=== PATIENT | female | born 1960 | race Caucasian/White ===

== ENCOUNTER 2020-10-25 09:33 | Observation (INO) | payer OTHER ==
[~2020-10-25] VITALS: Ht 172.7 cm; Wt 118.4 kg
[~2020-10-25 09:33] MED LIST: ANORO ELLIPTA1 EACH INH; ATORVASTATIN CA80 MG PO; BUSPIRONE HCL15 MG PO; DULOXETINE HCL60 MG PO; FUROSEMIDE 40 M40 M1 PO; LOSARTAN POTASS50 MG PO; METFORMIN HCL500 M1 PO; OMEPRAZOLE 20 M20 M1 PO; PRAMIPEXOLE D0.25 MG PO; PREGABALIN200 MG PO; PROAIR HFA8.5 GM INH; QUETIAPINE FUM100 MG PO; QUETIAPINE FUM400 MG PO; SINGULAIR 10 MG10 M1 PO; STIOLTO RESPIMAT4 GM INH; ZOLPIDEM TARTRA10 MG PO
[2020-10-25 10:21] LABS: HEMATOCRIT 40.5 % (37.0-47.0); HEMOGLOBIN 13.7 gm/dL (12.0-15.0)
[2020-10-25 10:33] LABS: CALCIUM 8.7 mg/dL (8.5-10.1); CREATININE 0.8 mg/dL (0.6-1.0); POTASSIUM 3.8 mmol/L (3.5-5.1)
[2020-10-25 10:35] VITALS: BP 129/69
--- NOTE | 2020-10-25 14:14 | EKG ---
[address] [address] ELECTROCARDIOGRAM REPORT Name: MANPREET CELAYA Room #: 150-8 [facility]#: [id number] Admission: 10/25/20 Attend Phys: Montez Cox MD, Discharge: Date of : 64 Report #: [id number] [facility] Test Date: 2020-10-25 Test Time: 10:34:35 Pat Name: MANPREET CELAYA Department: Room: Gender: F Customer Care Representative: YOGI : 1960 Requested By: Montez Cox Order Number: [id number] MD: Miguel Paul Measurements Intervals [place] Rate: 59 P: 76 TX: 197 QRS: 45 QRSD: 104 T: 46 QT: 455 QTc: 451 Interpretive Statements Sinus rhythm No previous ECG available for comparison Electronically Signed On 10-25-2020 14:14:34 CDT by Miguel Paul [email or web address] <ELECTRONICALLY SIGNED> By: Miguel Paul MD, [facility] 10/25/20 1414 1034 1034 Miguel Paul MD, FACJude /EPI
[2020-10-25 15:32] VITALS: BP 165/106
--- NOTE | 2020-10-25 16:06 | NUR ---
ASSUMED PT CARE THIS AM. PT A&OX4, ABLE TO MAKE NEEDS KNOWN. IV PATENT, FLUIDS INFUSING. PATIENT REPORTS NAUSEA, MEDICATION GIVEN PER EMAR. PATIENT NPO FOLLOWING SURGERY. PATIENT REPORTING NO NUMBNESS OR TINGLING. 5 LAP SITES TO ABDOMEN, ALL ARE DRY AND INTACT. BLOOD SUGAR BEING MONITORED. FALL PRECAUTIONS ARE IN PLACE, CALL LIGHT WITHIN REACH. PATIENT IS ON 2 LITERS OF OXYGEN VIA NC.
[2020-10-25 16:25] VITALS: BP 166/99
[2020-10-25 20:32] VITALS: BP 147/82
[2020-10-26 03:29] VITALS: BP 129/71
--- NOTE | 2020-10-26 04:37 | NUR ---
PT IS A/O X4 AND IS UP WITH SBA WITH WALKER AND GB. 2 LITERS O2 NC. VSS AFEBRILE. VOIDS PER TOILET. NO BM THIS SHIFT. LAP SITES C/D/I. PT WALKED AROUND THE UNIT ONCE AND HAS BEEN TO THE BR A COUPLE TIMES. SCDS, AND FALL PRECAUTIONS IN PLACE, CALL LIGHT IS WITHIN REACH. WILL CONTINUE TO MONITOR.
[2020-10-26 05:49] LABS: HEMATOCRIT 39.5 % (37.0-47.0); HEMOGLOBIN 13.3 gm/dL (12.0-15.0); MCH 31.2 pg (26.0-34.0); MCHC 33.6 g/dL (28.0-37.0); MCV 92.9 fL (80.0-100.0); RBC 4.25 mil/uL (4.20-5.00); RDW 13.7 % (10.5-14.5); WBC 12.2 thou/uL (4.0-11.0)
[2020-10-26 06:16] LABS: CALCIUM 8.2 mg/dL (8.5-10.1); CREATININE 0.9 mg/dL (0.6-1.0)
[2020-10-26 06:34] LABS: POTASSIUM 5.1 mmol/L (3.5-5.1)
[2020-10-26 07:00] VITALS: BP 104/62
--- NOTE | 2020-10-26 11:58 | O ---
[address] [address] OPERATIVE REPORT Name: MANPREET CELAYA Room #: 438-P [facility] M.R.#: [id number] Admission: 10/25/20 Attend Phys: Montez Cox MD, Discharge: Date of : 64 Report #: [id number] THIS REPORT FOR: cc: Kaelyn Cruz MD, Allison Louise MD Soliman,Montez Talamantes MD FACS ~ DATE OF SERVICE: 10/25/2020 PREOPERATIVE DIAGNOSES: 1. Morbid obesity. 2. Hypertension. 3. Diabetes mellitus. 4. Hypercholesterolemia. 5. Chronic back pain. 6. Chronic fatigue. 7. History of laparoscopic sleeve gastrectomy with weight regain and stretched sleeve. 8. Hiatal hernia. POSTOPERATIVE DIAGNOSES: 1. Morbid obesity. 2. Hypertension. 3. Diabetes mellitus. 4. Hypercholesterolemia. 5. Chronic back pain. 6. Chronic fatigue. 7. History of laparoscopic sleeve gastrectomy with weight regain and stretched sleeve. 8. Moderate sized type 3 paraesophageal hernia. PROCEDURES PERFORMED: 1. Laparoscopic repair of a recurrent type 3 paraesophageal hernia without mesh. 2. Laparoscopic redo sleeve gastrectomy. 3. A thorough esophagogastroduodenoscopy (EGD). SURGEON: Montez Cox MD ADOPTION AGENT: SHARON Tabares. ANESTHESIA: General endotracheal anesthesia. ESTIMATED BLOOD LOSS: Minimal (less than 10 mL). COMPLICATIONS: None appreciated. [address] [place] [address] OPERATIVE REPORT Name: MANPREET CELAYA Room #: 438-P [facility]..#: [id number] Admission: 10/25/20 Attend Phys: Montez Cox MD, Discharge: Date of : 64 Report #: [id number] SPECIMENS: Gastric sleeve resection specimen to pathology. INDICATIONS: The patient is a 60-year-old female who has previously undergone a laparoscopic sleeve gastrectomy for weight loss as well as suture repair of a hiatal hernia. The patient did well initially, but has had significant weight regain and has undergone a thorough workup showing a markedly dilated sleeved stomach as well as recurrent hiatal hernia. After thorough consultation with the patient, she has elected to proceed with the above-mentioned procedures today after undergoing aggressive diet and exercise attempts under my direction for several months without significant results. The patient has also received clearance from her primary care physician, a psychologist and recreation attendant supervisor to have all cleared her for redo bariatric surgery, indicating that it is medically necessary for long-term weight loss and resolution of her comorbid conditions. DESCRIPTION OF PROCEDURE: After explaining the risks, benefits and alternatives of the procedure with the patient in detail in the preoperative holding area and obtaining consent, the patient was brought to the operating room and placed supine on the operating room table. After conducting a thorough timeout procedure, verifying correct patient and procedure, the patient was given general endotracheal anesthesia. Once adequate anesthesia was obtained, her SCDs were hooked up to pneumatic compression device and she was given a preoperative dose of antibiotics in line with the SCIP protocol. The patient's abdomen was now prepped and draped in the standard surgical sterile fashion after positioning her in the low lithotomy position with her legs in the Yellofin stirrups. Began the procedure by performing a thorough EGD. The Barcheyachtinon upper endoscope was used to intubate the oropharynx, was traversed down to the second portion of duodenum with ease. Slow careful withdrawal of the scope showed no evidence of duodenitis, gastritis, esophagitis, mass lesions or ulcerations. A retroflexion view of the scope within the markedly dilated gastric sleeve showed evidence of the recurrent hiatal hernia. The scope was straightened out with a step at the level of pylorus where it was fixed into position. The stomach was fully desufflated. After sterilely scrubbing and entering the operative field, I now proceeded to anesthetize the skin in the right upper quadrant, 5 cm cephalad to the umbilicus and 5 cm to the patient's right. This was done using 10 mL of 0.5% Marcaine with epinephrine and then I created a 1.5 cm transverse skin incision at this location. A 15 mm Visiport was placed over 0-degree 5 mm laparoscope and was introduced through this incision site. Once intra-abdominal placement was verified visually, the obturator for the trocar and laparoscope were both removed and the abdomen was insufflated to 15 mmHg using carbon dioxide gas. The laparoscope was changed to a 5 mm 30-degree laparoscope, which was reintroduced through this trocar. The entire abdomen was evaluated to ensure no injury upon entry. There was a paucity of intra-abdominal adhesions and as such, I was able to place additional [address] [address] OPERATIVE REPORT Name: MANPREET CELAYA Room #: 438-P [facility] An YoungR.#: [id number] Admission: 10/25/20 Attend Phys: Montez Cox MD, Discharge: Date of : 64 Report #: [id number] trocars in the left mid abdomen. A 5 mm port was placed 2 cm cephalad in the umbilicus and 1 cm to the patient's left, and 12 mm port was placed 5 cm lateral to that, and a final 5 mm port was placed in extreme left lateral flank. All three additional ports were placed under direct vision after anesthetizing the skin at each location with 5 mL of 0.5% Marcaine with epinephrine. I created appropriately sized skin nicks using #15 bladed scalpel. Laparoscope was removed, changed the 5 mm port cephalad to the umbilicus and the patient was placed in steep reverse Trendelenburg position. I now anesthetized the skin in subxiphoid location with 5 mL of 0.5% Marcaine with epinephrine. A small skin incision using a #15 bladed scalpel. The Eric liver retractor was now positioned through this defect where it was positioned up under the left lobe of the liver and held up against the posterior aspect of the anterior abdominal wall. We now had complete access to the stomach and hiatal regions and saw evidence of a type 3 paraesophageal hernia with approximately 1/3-1/2 of the sleeved stomach contained within the distal mediastinum. Careful traction was now placed on the gastric tissues and inferior direction due to pull this back into the intra-abdominal domain. I now proceeded to open the pars flaccida using Harmonic scalpel to identify the base of the right nga. I dissected anteriorly up the right nga using Harmonic scalpel for hemostasis. I now proceeded to take down all the adhesions from the greater curvature of the stomach, which it appears that the omentum was sutured back to the sleeved stomach at the time of her sleeve gastrectomy. This was taken down with Harmonic scalpel to free the entirety of the greater curvature of the stomach all the way up to the left nga where I dissected anteriorly up the left nga in similar fashion. I now elevated the stomach and made a retroesophageal window from the patient's right to left side, through which a Adamaris drain was pulled. This allowed me to provide inferior and anterior traction on the gastroesophageal tissues without actually handling the tissues themselves. I now carried down to extensive mediastinal dissection, taking down all adhesions in the mediastinum as far cephalad as possible, staying well away from all gastroesophageal tissues throughout. This now allowed me 3 cm of intra-abdominal esophagus that was not under traction to attempt to recoil back up into the mediastinum. I now performed a formal hiatal hernia repair posteriorly using several sutures of 0 Surgidac on the EndoStitch device to perform the cruroplasty and recreate the slit valve aspect of the lower esophageal sphincter complex without undue tightness on the gastroesophageal tissues themselves. I did place two sutures anteriorly as well, so that I did not distort the angle of entry into the abdomen too significantly. Once this was done, the Standard drain was removed in full and we turned our attention to the sleeve gastrectomy portion of the procedure. I measured 6 cm proximal to pylorus and ensure that all adhesions on the greater curvature were taken down from this location all the way up the greater curve. It appears that the previous sleeve gastrectomy started approximately 8-10 cm from the pylorus. Now that I had fully dissected the sleeved stomach free, I started the stapling portion of the procedure. The Molino 60 mm stapler with a black load utilizing [address] [address] OPERATIVE REPORT Name: MANPREET CELAYA Room #: 438-P [facility] An [place]#: [id number] Admission: 10/25/20 Attend Phys: Montez Cox MD, Discharge: Date of : 64 Report #: [id number] Judd's Victorina-Strip buttressing material was placed in the abdomen through the 15 mm port. This first firing started at the location approximately 5-6 cm proximal to pylorus and fired right along, but not extremely tight to the scope, so as not to cause stricturing, especially at the incisura. Another firing of an additional black load again utilizing Judd's Victorina-Strip buttressing material was carried out using the scope as a 34-British bougie. Four additional firings of green loads all utilizing Judd's Victorina-Strip buttressing material was carried out following the scope as a bougie all the way up to the left nga. This left us with an excellent sleeve of gastric remnants that did not have any twisting or bleeding. A laparoscopic clip grinder operator external tool was used, had a few areas on the staple line to maintain complete hemostasis. The resection specimen was placed in the right upper quadrant for future retrieval and 10 mL of Tisseel in the deep low spray device were now used to coat the entirety of the staple line with fibrin glue. I now removed the resection specimen via the 15 mm fascial incision and passed on the back table. I now proceeded to close the 15 mm and 12 mm fascial incisions using 0 PDS suture on the Sidney-Bianca suture passer device under direct vision. Each of these were tied down under direct vision to ensure I did not catch a loop of bowel or omentum in the suture repair. I now proceeded to reactivate the EGD scope and slowly withdraw it under direct visualization with the laparoscope showing no evidence of bubbling and the Tisseel thereby signifying a negative leak test. The EGD scope was removed via the oropharynx, passed off the field. The Eric liver retractor was now removed and the liver was healthy and uninjured. The abdomen was fully desufflated. All remaining trocars were removed under direct vision. A 4-0 Monocryl was used in a standard subcuticular fashion for all skin incisions and Dermabond glue was applied to all skin wounds. The resection specimen had the corner trimmed away and normal saline was passively instilled into the resection specimen yielding 575 mL in the resection specimen itself. At the end of the procedure, all instrument, needle and sponge counts were correct. The patient tolerated the procedure without incident, was awakened in the operating room and transitioned to the recovery room in stable condition with no apparent complications. <ELECTRONICALLY SIGNED> By: Montez Cox MD, FACS 10/26/20 1158 0814 0858 Montez Cox MD, FACS /nt
--- NOTE | 2020-10-26 12:50 | NUR ---
ASSUMED CARE OF PT AT 0700 THIS MORNING. PT HAD BARIATRIC SURGERY ON 10/25 AND IS C/O N/V AND ABD PN. PT HAS BEEN AT [facility] AND WAS DOWN IN XRAY. 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 ASSESSMENTS NOTED IN CHART AND OTHERWISE UNREMARKABLE. CALL LIGHT AND OTHER NEEDS ARE WITHIN REACH, IV WAS DC'D AND PT IS ABLE TO ABULATE INDEP. MEDS AND TX GIVEN NEEDED AND SCHEDULED. WILL MONITOR PT AND NOTE ANY CHANGES. WAITING FOR PT TO CONTACT SOMEONE TO PICK HER UP.
[2020-10-26 13:14] VITALS: BP 104/62
--- NOTE | 2020-10-26 17:07 | PATH ---
[facility] [address] [place] [place] [address] PATHOLOGY RPT PROCEDURE Name: MANPREET BIRD Room #: 438-P [facility] [place]#: [id number] Admission: 10/25/20 Date of : 64 Discharge: 10/26/20 Report #: [id number] Path Case #: [id number] [facility] Accession Number: [id number] . 01 Material submitted: . stomach - PARTIAL STOMACH . 02 Diagnosis: Stomach, partial stomach, partial sleeve gastrectomy: - No diagnostic abnormalities present, history of morbid obesity. (IUV/db; 10/26/2020) LBQ 10/26/2020 1545 Local . 02 Electronically signed: . Prachi Barrientos MD, Pathologist NPI- [id number] . 01 Gross description: . The specimen is received in formalin, labeled "Manpreet Bird, partial stomach". Received is a partial gastrectomy specimen with a stapled margin of resection measuring 15.6 x 3.6 x 3.1 cm in greatest dimensions. The serosal surface is pink-cabrera and smooth to shaggy in appearance. Opening the specimen reveals pink-cabrera, granular mucosa with minimal rugal folding. A staple line is identified measuring 6.0 cm in length. No distinct nodules or lesions are noted grossly. Parcel Post Weigher sections from the staple line are submitted in cassette A1. (CAA; 10/25/2020) QAC/QAC 10/25/2020 1823 Local . 02 Pathologist provided ICD-10: E66.01, K44.9 . 02 CPT . 449939 Specimen Comment: A courtesy copy of this report has been sent to [phone] Specimen Comment: Report sent to Performed at: [address], [place] [id number] MD Alfonso Bales MD Phone: [phone] Performed at: [address] [id number] MD Prachi Barrientos MD Phone: [phone]
== END 2020-10-26 14:17 | disposition home or self-care (01) ==
LOC: OR 09:33 → TBA 09:48 → OR 10:42 → 4S 15:06 → OR 15:53 → 4S 10-26 14:17
PROVIDERS: ADMIT Surgery; ATTEND Surgery
DX: E66.01 Morbid (severe) obesity due to excess calories (principal); K44.9 Diaphragmatic hernia without obstruction or gangrene; I10 Essential (primary) hypertension; E78.00 Pure hypercholesterolemia, unspecified; M54.9 Dorsalgia, unspecified; G89.29 Other chronic pain; R53.82 Chronic fatigue, unspecified; Z90.3 Acquired absence of stomach [part of]; Z79.899 Other long term (current) drug therapy
CPT/HCPCS: 50010; 50101; 50222; 50386; 50555; 50962; 51437; 52182; 52265; 53307; 53311; 54022; 54118; 55245; 55326; 56462; 56525; 56526; 56531; 57092; 58574; 58869; 58870; 58871; 58911; 62110; 62900; 70005

== ENCOUNTER 2020-10-28 14:40 | Inpatient (IN) | payer OTHER ==
[~2020-10-28] VITALS: Ht 175.3 cm; Wt 121.1 kg
[2020-10-28 14:41] VITALS: BP 159/64
[2020-10-28 15:16] LABS: BASOPHILS 0.4 % (0.0-2.0); EOSINOPHILS 2.4 % (0.0-3.0); HEMATOCRIT 39.1 % (37.0-47.0); HEMOGLOBIN 13.1 gm/dL (12.0-15.0); LYMPHOCYTES 19.4 % (24.0-44.0); MCH 30.8 pg (26.0-34.0); MCHC 33.4 g/dL (28.0-37.0); MCV 92.3 fL (80.0-100.0); MONOCYTES 8.1 % (1.0-8.0); PLATELET COUNT 309 thou/uL (150-400); POLYS 69.7 % (36.0-66.0); RBC 4.23 mil/uL (4.20-5.00); RDW 13.6 % (10.5-14.5); WBC 8.6 thou/uL (4.0-11.0)
[2020-10-28 15:21] LABS: ANION GAP 7 mmol/L (7-16); BUN 16 mg/dL (7-18); CALCIUM 9.2 mg/dL (8.5-10.1); CHLORIDE 109 mmol/L (98-107); CO2 29 mmol/L (21-32); CREATININE 0.9 mg/dL (0.6-1.0); GLUCOSE 152 mg/dL (74-106); POTASSIUM 4.2 mmol/L (3.5-5.1); SODIUM 145 mmol/L (136-145)
[2020-10-28 15:31] LABS: ALBUMIN 3.5 g/dL (3.4-5.0); LIPASE 56 U/L (73-393); SGOT 25 U/L (15-37); SGPT 69 U/L (14-59); TOTAL BILIRUBIN 0.6 mg/dL (0.2-1.0); TOTAL PROTEIN 6.5 g/dL (6.4-8.2); TROPONIN-I <0.06 ng/mL (<0.06)
[2020-10-28] MEDS ORDERED: WAL-DRAM 225 MG PO (15:39)
[2020-10-28 16:35] LABS: URINE BILIRUBIN 1+ (Negative); URINE BLOOD NEGATIVE (Negative); URINE CLARITY CLEAR; URINE COLOR YELLOW; URINE GLUCOSE-RANDOM* NEGATIVE (Negative); URINE KETONES 1+ (Negative); URINE LEUKOCYTES-REFLEX NEGATIVE (Negative); URINE NITRITE-REFLEX NEGATIVE (Negative); URINE PROTEIN (DIPSTICK) NEGATIVE (Negative); URINE SPECIFIC GRAVITY 1.025 (1.005-1.035); URINE UROBILINOGEN 0.2 E.U./dl (0.2-1.0)
[2020-10-28 16:43] LABS: ICTOTEST (BILI CONFIRMATORY) Positive (Negative)
[2020-10-28 16:56] LABS: AMP/METHAMP Negative (Negative); BARBITURATES Negative (Negative); BENZODIAZEPINES POSITIVE (Negative); COCAINE Negative (Negative); METHADONE Negative (Negative); OPIATES Negative (Negative); PCP Negative (Negative)
[2020-10-28 18:13] VITALS: BP 160/77
[2020-10-28 18:45] VITALS: BP 169/70
[2020-10-28 19:24] LABS: ALBUMIN 3.5 g/dL (3.4-5.0); TOTAL PROTEIN 6.8 g/dL (6.4-8.2)
[2020-10-28 19:55] VITALS: BP 157/69
[2020-10-29 02:57] LABS: HEMATOCRIT 34.9 % (37.0-47.0); HEMOGLOBIN 11.8 gm/dL (12.0-15.0); MCH 31.2 pg (26.0-34.0); MCHC 33.8 g/dL (28.0-37.0); MCV 92.2 fL (80.0-100.0); RBC 3.78 mil/uL (4.20-5.00); RDW 13.7 % (10.5-14.5); WBC 8.1 thou/uL (4.0-11.0)
[2020-10-29 03:10] LABS: CALCIUM 8.6 mg/dL (8.5-10.1); CREATININE 0.8 mg/dL (0.6-1.0); MAGNESIUM 1.9 mg/dL (1.8-2.4); POTASSIUM 3.5 mmol/L (3.5-5.1)
[2020-10-29 04:27] VITALS: BP 160/72
--- NOTE | 2020-10-29 07:34 | EKG ---
[address] [address] ELECTROCARDIOGRAM REPORT Name: MANPREET CELAYA Room #: 217-P [facility] IN M.R.#: [id number] Admission: 10/28/20 Attend Phys: Fernando Sanchez MD Discharge: Date of : 64 Report #: [id number] [facility] ED Test Date: 2020-10-28 Test Time: 14:52:38 Pat Name: MANPREET CELAYA Department: Room: [facility] Gender: F Finisher Accordion: JCDONAL : 1960 Requested By: Margarette Salgado Order Number: [id number] MD: Miguel Paul Measurements Intervals [place] Rate: 42 P: MS: QRS: 39 QRSD: 110 T: 54 QT: 527 QTc: 441 Interpretive Statements NSR Compared to ECG 10/25/2020 10:34:35 No significant change Electronically Signed On 10-29-2020 7:34:31 CDT by Miguel Paul [email or web address] <ELECTRONICALLY SIGNED> By: Miguel Paul MD, [facility] 10/29/20 0734 1452 1452 Miguel Paul MD, FACC /EPI
[2020-10-29 08:00] VITALS: BP 129/59
[2020-10-29 12:00] VITALS: BP 130/64
--- NOTE | 2020-10-29 16:37 | NUR ---
met with patient who rec a gastric sleeve. she dc home and returned with N/V and not taking medications. She reports she lives with boyfriend who works nights. She is on disability. Patient interested in home based community support via her medicaid. She questions how many hours she would receive. Discussed home health care with patient as well. Patient reports if home health ordered she has no preference for HH agency. Verified address and PCP.
[2020-10-29 16:50] VITALS: BP 130/71
[2020-10-29 20:32] VITALS: BP 127/72
[2020-10-30 04:41] VITALS: BP 121/64
[2020-10-30 05:21] LABS: HEMATOCRIT 35.7 % (37.0-47.0); HEMOGLOBIN 12.1 gm/dL (12.0-15.0); MCH 30.9 pg (26.0-34.0); MCHC 33.9 g/dL (28.0-37.0); MCV 91.3 fL (80.0-100.0); RBC 3.91 mil/uL (4.20-5.00); RDW 13.7 % (10.5-14.5); WBC 6.1 thou/uL (4.0-11.0)
[2020-10-30 06:01] LABS: CREATININE 0.7 mg/dL (0.6-1.0); MAGNESIUM 1.9 mg/dL (1.8-2.4); POTASSIUM 3.2 mmol/L (3.5-5.1)
--- NOTE | 2020-10-30 08:08 | NUR ---
UP ADLIB IN THE HALLWAYS.A/O X 4.SLEPT.UP TO THE BATHROOM,VOIDED.MONITOR SHOWS SB.POC CONTINUED.
--- NOTE | 2020-10-30 12:27 | NUR ---
on-going assessment: PT REQUESTED REFERRAL BE SENT TO [facility]. CM FAXED REFERRAL AND NOTIFIED NERISSA GERMAN AT [facility] AND AWAITING INPUT AT THIS TIME.
[2020-10-30 12:53] VITALS: BP 121/64
[2020-10-30 13:39] VITALS: BP 121/64
[2020-10-30 15:51] VITALS: BP 121/64
== END 2020-10-30 17:41 | disposition home health service (06) | DRG 391 ==
LOC: ER 14:40 → 2N 16:57 → EROBS 16:57 → 2N 18:13
PROVIDERS: Emergency Medicine; ADMIT Internal Medicine; ATTEND Internal Medicine
DX: K91.0 Vomiting following gastrointestinal surgery (principal); G92 Toxic encephalopathy; F41.9 Anxiety disorder, unspecified; E04.1 Nontoxic single thyroid nodule; J39.8 Other specified diseases of upper respiratory tract; I10 Essential (primary) hypertension; E78.5 Hyperlipidemia, unspecified; E11.9 Type 2 diabetes mellitus without complications; F31.9 Bipolar disorder, unspecified; F43.10 Post-traumatic stress disorder, unspecified; J44.9 Chronic obstructive pulmonary disease, unspecified; F17.200 Nicotine dependence, unspecified, uncomplicated; R00.1 Bradycardia, unspecified; K21.9 Gastro-esophageal reflux disease without esophagitis; Z90.711 Acquired absence of uterus with remaining cervical stump; Z79.899 Other long term (current) drug therapy; Z98.84 Bariatric surgery status
CPT/HCPCS: 10081